=== PATIENT | female | born 1970 | race Caucasian/White ===

== ENCOUNTER 2017-01-04 21:00 | Emergency (ER) | payer OTHER ==
[~2017-01-04] VITALS: Ht 165.1 cm; Wt 97.5 kg
[2017-01-04] MEDS ORDERED: KEPPRA 500 MG500 M1 PO (21:15)
[2017-01-04] MEDS ORDERED: NORCO 5-325 TA1 EACH PO (22:16)
[2017-01-04 23:17] VITALS: BP 144/96
== END 2017-01-04 23:19 | disposition home or self-care (01) ==
LOC: ER 21:00
DX: S93.401A Sprain of unspecified ligament of right ankle, initial encounter (principal); S90.31XA Contusion of right foot, initial encounter; G43.909 Migraine, unspecified, not intractable, without status migrainosus; F10.99 Alcohol use, unspecified with unspecified alcohol-induced disorder; Z86.73 Personal history of transient ischemic attack (TIA), and cerebral infarction without residual deficits; Z90.89 Acquired absence of other organs; Z88.0 Allergy status to penicillin; W01.0XXA Fall on same level from slipping, tripping and stumbling without subsequent striking against object, initial encounter; Y93.01 Activity, walking, marching and hiking; Y92.89 Other specified places as the place of occurrence of the external cause; Y99.8 Other external cause status